=== PATIENT | male | born 1945 | race Caucasian/White ===

== ENCOUNTER 2016-04-14 11:03 | Emergency (ER) | payer OTHER ==
[~2016-04-14] VITALS: Ht 182.9 cm; Wt 100.7 kg
[~2016-04-14 11:03] MED LIST: AMLODIPINE BESYL5 MG PO; AVODART0.5 MG PO; Aspirin E.C. PO; Flomax PO; LEVOTHYROXINE150 MCG PO; Levothroid,Synthroid PO; Norvasc PO; OMEPRAZOLE40 M1 PO; ONE DAILY FOR1 EACH PO; PLAVIX75 MG PO; PriLOSEC PO; TAMSULOSIN HCL0.4 MG PO; VESICARE5 MG PO; Vicodin,Norco 5/325 PO; ZYRTEC10 M2 PO
[2016-04-14 12:11] LABS: EOSINOPHIL (%) 2.1 % (0-5); EOSINOPHIL COUNT 0.2 K/uL (0-0.3); IMMATURE GRANULOCYTE (%) 0.1 % (0.0-0.7); IMMATURE GRANULOCYTE COUNT 0.1 K/uL; LYMPHOCYTE COUNT 1.1 K/uL (1.0-2.8); MCH 30.9 PG (29.0-34.0); MCHC 33.7 G/DL (30.0-36.0); MCV 91.8 FL (86-99); MEAN PLAT.VOLUME 9.4 uM^3 (9.0-12.4); MONOCYTE (%) 6.6 % (3-12); MONOCYTE COUNT 0.6 K/uL (0-0.8); NEUTROPHIL (%) 78.6 % (45-76); NEUTROPHIL COUNT 6.8 K/uL (1.8-6.4); PLATELET COUNT 286 K/uL (156-360); RBC DIS.WIDTH-CV 12.6 % (11.8-14.6); RBC DIS.WIDTH-SD 41.4 % (39-53); RED BLOOD COUNT 4.14 M/uL (4.00-5.50); WHITE BLOOD COUNT 8.6 K/uL (4.1-10.2)
[2016-04-14 12:12] VITALS: BP 148/77
[2016-04-14 12:19] LABS: INTER. NORMALIZED RATIO 1.1; PROTHROMBIN TIME 11.3 (9.2-11.2)
[2016-04-14 12:38] LABS: ANION GAP 8 MEQ/L (2-14); CHLORIDE 105 MEQ/L (99-109); POTASSIUM 4.1 MEQ/L (3.7-5.4); SAMPLE HEMOLYSIS CHECK 0; SAMPLE ICTERIC CHECK 0; SAMPLE LIPEMIA CHECK 0; SODIUM 140 MEQ/L (136-147)
[2016-04-14 12:44] LABS: GFR ESTIMATE (CALCULATED) > 59 mL/min/; GLUCOSE 103 mg/dL (70-99); UREA NITROGEN (BUN) 14 mg/dL (9-23)
== END 2016-04-14 12:12 | disposition home or self-care (01) ==
LOC: EME 11:03
PROVIDERS: Physician Assistant
PROC: 3E0234Z Introduction of Serum, Toxoid and Vaccine into Muscle, Percutaneous Approach (ICD-10-PCS; principal; 2016-04-14)
DX: S05.12XA Contusion of eyeball and orbital tissues, left eye, initial encounter (principal); W20.8XXA Other cause of strike by thrown, projected or falling object, initial encounter; Z23 Encounter for immunization
CPT/HCPCS: 80048; 85025; 85610; 93005; 99281; 99283